=== PATIENT | male | born 1955 | race Caucasian/White ===

== ENCOUNTER 2022-08-17 08:55 | Emergency (ER) | payer OTHER, BC ==
[2022-08-17 09:07] VITALS: TEMP 98.5; BMI 33.9
[2022-08-17] MEDS ORDERED: ACETAMINOPHEN 325 MG TABLET (FP) PO ONE (09:22)
[2022-08-17] MEDS ORDERED: ACETAMINOPHEN 325 MG TABLET (FP) ONE (09:27)
[2022-08-17] MEDS ORDERED: LIDOCAINE HCL 2% (20ML MULTI-DOSE VIAL) ONE (11:11)
[2022-08-17] MEDS ORDERED: PROPOFOL 200 MG/20 ML VIAL IVPUSH ONE ×2 (11:32→11:41)
[2022-08-17 11:48] VITALS: RESP 20
[2022-08-17] MEDS ORDERED: PROPOFOL 20 ML ONE (12:08)
[2022-08-17 12:49] VITALS: PULSE 62
[2022-08-17 12:50] VITALS: BP 149/104
== END 2022-08-17 14:24 | disposition home or self-care (01) ==
LOC: FER 08:55
PROC: 3E033NZ Introduction of Analgesics, Hypnotics, Sedatives into Peripheral Vein, Percutaneous Approach (ICD-10-PCS; principal; 2022-08-17)
DX: S43.004A Unspecified dislocation of right shoulder joint, initial encounter (principal); S02.2XXA Fracture of nasal bones, initial encounter for closed fracture; W01.198A Fall on same level from slipping, tripping and stumbling with subsequent striking against other object, initial encounter
CPT/HCPCS: 70450-TC; 70486-TC; 71046-TC-FY; 73030-TC-RT-FY; 93005; 93010; 99285-25

== ENCOUNTER 2022-09-21 06:09 | Day surgery (SDC) | payer OTHER, BC ==
[2022-09-14 14:15] VITALS: BMI 35.2
[2022-09-21] MEDS ORDERED: EPINEPHrine 1:1,000 1,000 MCG/ML ML ONE ×2 (07:09→10:46)
[2022-09-21] MEDS ORDERED: PROPOFOL 40 ML ONE (07:13)
[2022-09-21] MEDS ORDERED: DEXAMETHASONE SOD PHOSPHATE/PF 10 MG/ML SDV ONE (07:31)
[2022-09-21] MEDS ORDERED: ROPIVACAINE HCL 0.5% 30ML VIAL ONE (07:31)
[2022-09-21] MEDS ORDERED: MIDAZOLAM HCL 2 MG/2 ML SINGLE DOSE VIAL ONE (07:31)
[2022-09-21] MEDS ORDERED: BUPIVACAINE HCL/PF 2.5 MG/ML - 30 ML VIAL IJ ONE (07:45)
[2022-09-21] MEDS ORDERED: ceFAZolin SODIUM 1 GM VIAL ONE ×2 (08:04→08:30)
[2022-09-21] MEDS ORDERED: TRANEXAMIC ACID 1000 MG/10 ML VIAL ONE (08:04)
[2022-09-21] MEDS ORDERED: DEXAMETHASONE SOD PHOSPHATE 4 MG/1 ML VIAL ONE (08:18)
[2022-09-21] MEDS ORDERED: ONDANSETRON 4 MG/2 ML VIAL ONE (08:18)
[2022-09-21] MEDS ORDERED: PROPOFOL 20 ML ONE ×4 (08:21→11:06)
[2022-09-21] MEDS ORDERED: ONDANSETRON 4 MG/2 ML VIAL IVPUSH PRN (10:02)
[2022-09-21] MEDS ORDERED: oxyCODONE HCL 5 MG TABLET PO PRN (10:02)
[2022-09-21 12:34] VITALS: RESP 16; TEMP 97.9
[2022-09-21 13:07] VITALS: BP 147/96; PULSE 80
== END 2022-09-21 13:14 | disposition home or self-care (01) ==
LOC: FASU 06:09
PROVIDERS: ATTEND Orthopaedic Surgery Sports Medicine
PROC: 0LM14ZZ Reattachment of Right Shoulder Tendon, Percutaneous Endoscopic Approach (ICD-10-PCS; principal; 2022-09-21 08:30)
PROC: 0LS34ZZ Reposition Right Upper Arm Tendon, Percutaneous Endoscopic Approach (ICD-10-PCS; 2022-09-21 08:30)
PROC: 0RNJ4ZZ Release Right Shoulder Joint, Percutaneous Endoscopic Approach (ICD-10-PCS; 2022-09-21 08:30)
DX: S46.011A Strain of muscle(s) and tendon(s) of the rotator cuff of right shoulder, initial encounter (principal); S43.491A Other sprain of right shoulder joint, initial encounter; M75.21 Bicipital tendinitis, right shoulder; M75.41 Impingement syndrome of right shoulder; M25.311 Other instability, right shoulder; X58.XXXA Exposure to other specified factors, initial encounter; Y93.9 Activity, unspecified; Y92.9 Unspecified place or not applicable
CPT/HCPCS: 94760; C1713

== ENCOUNTER 2023-01-10 07:28 | Day surgery (SDC) | payer OTHER, BC ==
[2023-01-03 13:40] VITALS: BMI 35.2
[2023-01-10] MEDS ORDERED: PROPOFOL 120 ML ONE (07:42)
[2023-01-10] MEDS ORDERED: LIDOCAINE HCL/PF 2% SDV 5ML VIAL ONE (07:42)
[2023-01-10 07:47] VITALS: RESP 16
[2023-01-10 09:10] VITALS: TEMP 97.8
[2023-01-10 09:26] VITALS: BP 135/83; PULSE 66
== END 2023-01-10 09:35 | disposition home or self-care (01) ==
LOC: FASU-ENDO 07:28
PROVIDERS: ATTEND Internal Medicine Gastroenterology
PROC: 0DJD8ZZ Inspection of Lower Intestinal Tract, Via Natural or Artificial Opening Endoscopic (ICD-10-PCS; principal; 2023-01-10 08:35)
DX: Z12.11 Encounter for screening for malignant neoplasm of colon (principal); Z86.010 Personal history of colon polyps; K57.30 Diverticulosis of large intestine without perforation or abscess without bleeding

== ENCOUNTER 2023-08-06 01:19 | Inpatient (IN) | payer OTHER, BC ==
[2023-08-06 01:41] VITALS: BMI 36.6
[2023-08-06] MEDS: SODIUM CHLORIDE 1,000 ML IV ONE (01:53)
[2023-08-06 02:53] LABS: HEMOGLOBIN 14.7 GM/dL (11.7-16.9); MCH 31.2 pg (25.7-33.7); MCHC 34.9 g/dl (32.0-35.9); MEAN CELL VOLUME 89.4 fl (80-96); MEAN PLT VOLUME 8.6 fl (7.5-11.1); PLATELET COUNT 243 10^3/uL (134-434); RDW 13.5 % (11.9-15.9)
[2023-08-06 03:05] LABS: CHLORIDE 101 mmol/L (98-107); POTASSIUM 3.9 mmol/L (3.5-5.1); SODIUM 135 mmol/L (136-145)
[2023-08-06 03:07] LABS: ANION GAP 14 mmol/L (4-13); BLOOD UREA NITROGEN 28.6 mg/dL (7-18); CALCIUM 8.1 mg/dL (8.5-10.1); CO2 20 mmol/L (21-32)
[2023-08-06 03:08] LABS: ALBUMIN 3.3 g/dl (3.4-5.0); GLUCOSE,RANDOM 183 mg/dL (74-106); MAGNESIUM 2.2 mg/dL (1.8-2.4)
[2023-08-06 03:10] LABS: SGPT/ALT 50 U/L (13-61)
[2023-08-06 03:11] LABS: CREATININE 2.3 mg/dL (0.55-1.3); PHOSPHOROUS 1.2 mg/dL (2.5-4.9); SGOT/AST 191 U/L (15-37)
[2023-08-06 03:12] LABS: BILIRUBIN,TOTAL 2.6 mg/dL (0.2-1); TOT PROT 7.5 g/dl (6.4-8.2)
[2023-08-06 03:13] LABS: ALK PHOS 77 U/L (45-117)
[2023-08-06 03:39] LABS: LACTIC ACID 4.8 mmol/L (0.4-2.0)
[2023-08-06 03:44] LABS: INR 1.54 (0.83-1.09); PROTHROMBIN TIME (PATIENT) 17.8 SEC (9.7-13.0)
[2023-08-06] MEDS: PIPERACILLIN/TAZOB 4.5 GM 4.5 GM in DEXTROSE 5%-WATER 100 ML IVPB ONE (04:59)
[2023-08-06] MEDS ORDERED: PIPERACILLIN/TAZOBACTAM 4.5 GM VIAL IVPB ONE (05:00)
[2023-08-06] MEDS: OSELTAMIVIR PHOSPHATE 30 MG CAPSULE PO ONE (07:28)
[2023-08-06] MEDS: VANCOMYCIN HCL 1,500 MG in DEXTROSE 5%-WATER - 500 ML IVPB ONE (08:39)
[2023-08-06] MEDS: SODIUM CHLORIDE 1,000 ML IV SCH ×2 (08:40→17:44)
[2023-08-06] MEDS: VANCOMYCIN PREMIX 1.5 GM 1,500 MG/300 ML BAG IVPB ONE (08:41)
[2023-08-06 09:08] LABS: CHOLESTEROL 108 mg/dL (50-200)
[2023-08-06 09:10] LABS: LDL CHOLESTEROL (ONLY SJRH) 61 mg/dL (5-100)
[2023-08-06 09:11] LABS: HDL CHOLESTEROL 41 mg/dL (40-60)
[2023-08-06] MEDS: CEFTRIAXONE 1 GM in DEXTROSE 5%-WATER - 50 ML IVPB SCH (17:25)
[2023-08-06] MEDS: POTASSIUM PHOSPHATE 30 MM in DEXTROSE 5%-WATER - 500 ML IVPB ONE (17:45)
[2023-08-06] MEDS: OSELTAMIVIR PHOSPHATE 30 MG CAPSULE PO SCH (22:04)
[2023-08-07 06:48] LABS: POTASSIUM 3.8 mmol/L (3.5-5.1)
[2023-08-07 06:54] LABS: PHOSPHOROUS 5.9 mg/dL (2.5-4.9)
[2023-08-07 06:55] LABS: CREATININE 5.1 mg/dL (0.55-1.3)
[2023-08-07 06:56] LABS: BILIRUBIN,TOTAL 1.4 mg/dL (0.2-1); TOT PROT 5.8 g/dl (6.4-8.2)
[2023-08-07 07:15] LABS: ALBUMIN 2.6 g/dl (3.4-5.0); BLOOD UREA NITROGEN 62.6 mg/dL (7-18)
[2023-08-07] MEDS ORDERED: OSELTAMIVIR PHOSPHATE 30 MG CAPSULE PO SCH (07:45)
[2023-08-07 08:20] LABS: HEMATOCRIT 35.9 % (35.4-49); HEMOGLOBIN 12.6 GM/dL (11.7-16.9); MCH 31.6 pg (25.7-33.7); MEAN CELL VOLUME 90.2 fl (80-96); MEAN PLT VOLUME 8.9 fl (7.5-11.1); PLATELET COUNT 142 10^3/uL (134-434); RBC 3.98 M/mm3 (4.00-5.60); RDW 14.1 % (11.9-15.9); WHITE BLOOD COUNT 9.6 K/mm3 (4.0-10.0)
[2023-08-07 08:34] LABS: MAGNESIUM 2.2 mg/dL (1.8-2.4)
[2023-08-07] MEDS: ATENOLOL 50 MG TABLET (FP) PO SCH (10:00)
[2023-08-07] MEDS: OSELTAMIVIR PHOSPHATE 30 MG CAPSULE PO SCH (10:00)
[2023-08-07 12:52] LABS: EPI CELLS >36 /uL (0-25.1); HYALINE CASTS 3 /uL (0-3.1); URINE APPEARANCE TURBID; URINE BILIRUBIN 1+ (NEGATIVE); URINE COLOR DK YELLOW; URINE GLUCOSE (UA) NEGATIVE (NEGATIVE); URINE KETONE NEGATIVE (NEGATIVE); URINE LEUK ESTERASE 1+ (NEGATIVE); URINE NITRITE POSITIVE (NEGATIVE); URINE PROTEIN 2+ (NEGATIVE); URINE WBC 190 /uL (0-25.8)
[2023-08-07 12:53] LABS: URINE BACTERIA 3.8 /uL (0-1359); URINE RBC 380.3 /uL (0-23.9)
[2023-08-08 06:39] LABS: MCH 30.9 pg (25.7-33.7); MCHC 34.1 g/dl (32.0-35.9); MEAN CELL VOLUME 90.4 fl (80-96); MEAN PLT VOLUME 9.2 fl (7.5-11.1); PLATELET COUNT 145 10^3/uL (134-434); RBC 4.21 M/mm3 (4.00-5.60); RDW 14.1 % (11.9-15.9); WHITE BLOOD COUNT 11.6 K/mm3 (4.0-10.0)
[2023-08-08 07:30] LABS: POTASSIUM 4.2 mmol/L (3.5-5.1)
[2023-08-08 07:40] LABS: CALCIUM 7.6 mg/dL (8.5-10.1)
[2023-08-08 07:41] LABS: ALBUMIN 2.3 g/dl (3.4-5.0); MAGNESIUM 2.7 mg/dL (1.8-2.4)
[2023-08-08 07:44] LABS: CREATININE 6.6 mg/dL (0.55-1.3); PHOSPHOROUS 7.5 mg/dL (2.5-4.9)
[2023-08-08 07:45] LABS: BILIRUBIN,TOTAL 1.1 mg/dL (0.2-1); TOT PROT 5.8 g/dl (6.4-8.2)
[2023-08-08] MEDS: OSELTAMIVIR PHOSPHATE 30 MG CAPSULE PO SCH (09:46)
[2023-08-08] MEDS: SODIUM BICARBONATE 8.4% 50 MEQ/50 ML DISP.SYRIN IVPUSH ONE (12:41)
[2023-08-08] MEDS: SODIUM CHLORIDE 1,000 ML IV SCH (12:41)
[2023-08-08] MEDS: SODIUM BICARBONATE 8.4% - 75 MEQ in SODIUM CHLORIDE 0.45% 1,000 ML IV SCH (13:15)
[2023-08-09 06:49] LABS: CHLORIDE 102 mmol/L (98-107); POTASSIUM 4.3 mmol/L (3.5-5.1); SODIUM 137 mmol/L (136-145)
[2023-08-09 06:51] LABS: MAGNESIUM 2.4 mg/dL (1.8-2.4)
[2023-08-09 06:55] LABS: ALBUMIN 2.2 g/dl (3.4-5.0); ANION GAP 20 mmol/L (4-13); CO2 14 mmol/L (21-32); GLUCOSE,RANDOM 94 mg/dL (74-106)
[2023-08-09 06:58] LABS: SGPT/ALT 181 U/L (13-61)
[2023-08-09 06:59] LABS: SGOT/AST 370 U/L (15-37)
[2023-08-09 07:00] LABS: TOT PROT 5.9 g/dl (6.4-8.2)
[2023-08-09 07:01] LABS: ALK PHOS 69 U/L (45-117)
[2023-08-09 07:38] LABS: BLOOD UREA NITROGEN 112.6 mg/dL (7-18); CALCIUM 6.7 mg/dL (8.5-10.1); CREATININE 7.9 mg/dL (0.55-1.3)
[2023-08-09 08:26] LABS: BASO % 0.4 % (0-2.0); EOS % 0.9 % (0-4.5); HEMATOCRIT 37.8 % (35.4-49); HEMOGLOBIN 13.3 GM/dL (11.7-16.9); LYMPH % 7.5 % (8-40); MCH 31.6 pg (25.7-33.7); MCHC 35.1 g/dl (32.0-35.9); MEAN PLT VOLUME 9.1 fl (7.5-11.1); NEUT % 85.2 % (42.8-82.8); PLATELET COUNT 186 10^3/uL (134-434); RBC 4.21 M/mm3 (4.00-5.60); RDW 14.3 % (11.9-15.9); WHITE BLOOD COUNT 10.7 K/mm3 (4.0-10.0)
[2023-08-09 08:55] LABS: PHOSPHOROUS 8.9 mg/dL (2.5-4.9)
[2023-08-09] MEDS: THIAMINE HCL 200 MG/2 ML VIAL IVPB SCH (13:16)
[2023-08-09] MEDS: SODIUM BICARBONATE 8.4% 50 MEQ/50 ML DISP.SYRIN IVPUSH ONE (15:31)
[2023-08-09] MEDS: FOLIC ACID 1 MG TABLET (FP) PO SCH (15:31)
[2023-08-09] MEDS: COLLAGENASE CLOSTRIDIUM HIST. 30 GRAMS TUBE TP SCH (15:31)
[2023-08-10 06:38] LABS: HEMATOCRIT 38.3 % (35.4-49); MCH 30.8 pg (25.7-33.7); MCHC 33.9 g/dl (32.0-35.9); MEAN PLT VOLUME 8.6 fl (7.5-11.1); PLATELET COUNT 217 10^3/uL (134-434); RBC 4.21 M/mm3 (4.00-5.60); RDW 14.1 % (11.9-15.9); WHITE BLOOD COUNT 11.4 K/mm3 (4.0-10.0)
[2023-08-10 07:00] LABS: CHLORIDE 98 mmol/L (98-107); POTASSIUM 4.1 mmol/L (3.5-5.1); SODIUM 135 mmol/L (136-145)
[2023-08-10 07:01] LABS: ALBUMIN 2.2 g/dl (3.4-5.0); ANION GAP 19 mmol/L (4-13); CO2 18 mmol/L (21-32); GLUCOSE,RANDOM 87 mg/dL (74-106); MAGNESIUM 2.6 mg/dL (1.8-2.4)
[2023-08-10 07:04] LABS: SGOT/AST 274 U/L (15-37); SGPT/ALT 159 U/L (13-61)
[2023-08-10 07:05] LABS: BILIRUBIN,TOTAL 0.8 mg/dL (0.2-1); TOT PROT 5.6 g/dl (6.4-8.2)
[2023-08-10 07:06] LABS: ALK PHOS 69 U/L (45-117)
[2023-08-10 08:01] LABS: PHOSPHOROUS 9.5 mg/dL (2.5-4.9)
[2023-08-10 08:42] LABS: BLOOD UREA NITROGEN 131.3 mg/dL (7-18); CALCIUM 6.6 mg/dL (8.5-10.1); CREATININE 7.9 mg/dL (0.55-1.3)
[2023-08-10] MEDS: CALCIUM GLUC IN NACL, ISO-OSM 1 GM/50 ML BAG IVPB ONE (09:30)
[2023-08-10] MEDS: CALCIUM ACETATE 667 MG CAPSULE (FP) PO SCH (11:30)
[2023-08-10] MEDS ORDERED: SODIUM BICARBONATE 8.4% 50 MEQ/50 ML DISP.SYRIN IVPUSH ONE (18:00)
[2023-08-10] MEDS: SODIUM BICARBONATE 8.4% 50 MEQ/50 ML DISP.SYRIN IVPUSH ONE (18:12)
[2023-08-10] MEDS: SODIUM BICARBONATE 8.4% 50 MEQ/50 ML VIAL IVPUSH ONE (18:12)
[2023-08-10] MEDS: SODIUM CHLORIDE 1,000 ML IV SCH (18:40)
[2023-08-10 20:07] LABS: ANTIGLOMERULAR BASEMENT MEN.AB <0.2 units (0.0-0.9)
[2023-08-11 08:11] LABS: CHLORIDE 100 mmol/L (98-107); POTASSIUM 4.4 mmol/L (3.5-5.1); SODIUM 137 mmol/L (136-145)
[2023-08-11 08:26] LABS: CALCIUM 7.5 mg/dL (8.5-10.1)
[2023-08-11 08:27] LABS: ALBUMIN 2.1 g/dl (3.4-5.0); ANION GAP 19 mmol/L (4-13); CO2 18 mmol/L (21-32); GLUCOSE,RANDOM 77 mg/dL (74-106)
[2023-08-11 08:29] LABS: SGPT/ALT 128 U/L (13-61)
[2023-08-11 08:30] LABS: SGOT/AST 161 U/L (15-37)
[2023-08-11 08:31] LABS: BILIRUBIN,TOTAL 0.5 mg/dL (0.2-1); TOT PROT 5.3 g/dl (6.4-8.2)
[2023-08-11 08:32] LABS: ALK PHOS 60 U/L (45-117)
[2023-08-11 08:38] LABS: MAGNESIUM 2.7 mg/dL (1.8-2.4)
[2023-08-11 09:01] LABS: PHOSPHOROUS 9.4 mg/dL (2.5-4.9)
[2023-08-11 09:17] LABS: BLOOD UREA NITROGEN 131.4 mg/dL (7-18); CREATININE 7.6 mg/dL (0.55-1.3); HEMOGLOBIN 11.9 GM/dL (11.7-16.9); MEAN CELL VOLUME 91.3 fl (80-96); MEAN PLT VOLUME 8.4 fl (7.5-11.1); PLATELET COUNT 255 10^3/uL (134-434); RBC 3.83 M/mm3 (4.00-5.60); RDW 14.1 % (11.9-15.9); WHITE BLOOD COUNT 9.8 K/mm3 (4.0-10.0)
[2023-08-12 08:43] LABS: HEMOGLOBIN 11.6 GM/dL (11.7-16.9); MCH 31.1 pg (25.7-33.7); MCHC 34.2 g/dl (32.0-35.9); MEAN PLT VOLUME 7.9 fl (7.5-11.1); PLATELET COUNT 295 10^3/uL (134-434); RBC 3.74 M/mm3 (4.00-5.60); WHITE BLOOD COUNT 7.8 K/mm3 (4.0-10.0)
[2023-08-12 09:05] LABS: CHLORIDE 104 mmol/L (98-107); POTASSIUM 4.5 mmol/L (3.5-5.1); SODIUM 138 mmol/L (136-145)
[2023-08-12 09:08] LABS: GLUCOSE,RANDOM 96 mg/dL (74-106)
[2023-08-12 09:09] LABS: ALBUMIN 2.2 g/dl (3.4-5.0); ANION GAP 16 mmol/L (4-13); CO2 18 mmol/L (21-32); MAGNESIUM 2.6 mg/dL (1.8-2.4)
[2023-08-12 09:12] LABS: SGOT/AST 116 U/L (15-37); SGPT/ALT 113 U/L (13-61)
[2023-08-12 09:13] LABS: BILIRUBIN,TOTAL 0.7 mg/dL (0.2-1); TOT PROT 5.6 g/dl (6.4-8.2)
[2023-08-12 09:14] LABS: ALK PHOS 65 U/L (45-117)
[2023-08-12 09:36] LABS: BLOOD UREA NITROGEN 133.1 mg/dL (7-18); CALCIUM 6.9 mg/dL (8.5-10.1); CREATININE 7.7 mg/dL (0.55-1.3); PHOSPHOROUS > 9.0 mg/dL (2.5-4.9)
[2023-08-13] MEDS: ONDANSETRON 4 MG/2 ML VIAL IVPUSH ONE (02:35)
[2023-08-13 09:19] LABS: HEMATOCRIT 35.3 % (35.4-49); HEMOGLOBIN 12.5 GM/dL (11.7-16.9); MCH 31.8 pg (25.7-33.7); MCHC 35.5 g/dl (32.0-35.9); MEAN CELL VOLUME 89.5 fl (80-96); MEAN PLT VOLUME 7.4 fl (7.5-11.1); PLATELET COUNT 353 10^3/uL (134-434); RBC 3.95 M/mm3 (4.00-5.60); RDW 14.4 % (11.9-15.9); WHITE BLOOD COUNT 7.7 K/mm3 (4.0-10.0)
[2023-08-13 09:21] LABS: CHLORIDE 109 mmol/L (98-107); POTASSIUM 4.5 mmol/L (3.5-5.1); SODIUM 140 mmol/L (136-145)
[2023-08-13 09:26] LABS: ANION GAP 16 mmol/L (4-13); CALCIUM 7.3 mg/dL (8.5-10.1); CO2 14 mmol/L (21-32); MAGNESIUM 2.2 mg/dL (1.8-2.4)
[2023-08-13 09:27] LABS: GLUCOSE,RANDOM 98 mg/dL (74-106)
[2023-08-13 09:30] LABS: CREATININE 6.8 mg/dL (0.55-1.3)
[2023-08-13 09:33] LABS: BLOOD UREA NITROGEN 116.3 mg/dL (7-18); PHOSPHOROUS 7.9 mg/dL (2.5-4.9)
[2023-08-13] MEDS ORDERED: SODIUM CHLORIDE 0.45% 1,000 ML with SODIUM BICARBONATE 8.4% - 75 MEQ IV SCH (14:00)
[2023-08-13] MEDS: SODIUM BICARBONATE 8.4% - 75 MEQ in SODIUM CHLORIDE 0.45% 1,000 ML IV SCH (15:14)
[2023-08-13] MEDS: SODIUM BICARBONATE 8.4% 50 MEQ/50 ML DISP.SYRIN IVPUSH ONE (15:15)
[2023-08-13 16:08] LABS: ATYPICAL pANCA <1:20 titer (Neg:<1:20); C-ANCA <1:20 titer (Neg:<1:20)
[2023-08-14 06:50] LABS: HEMATOCRIT 32.6 % (35.4-49); HEMOGLOBIN 11.3 GM/dL (11.7-16.9); MCH 31.4 pg (25.7-33.7); MCHC 34.7 g/dl (32.0-35.9); MEAN CELL VOLUME 90.3 fl (80-96); MEAN PLT VOLUME 7.4 fl (7.5-11.1); PLATELET COUNT 333 10^3/uL (134-434); RBC 3.61 M/mm3 (4.00-5.60); WHITE BLOOD COUNT 7.5 K/mm3 (4.0-10.0)
[2023-08-14 07:10] LABS: CHLORIDE 112 mmol/L (98-107); POTASSIUM 4.3 mmol/L (3.5-5.1); SODIUM 143 mmol/L (136-145)
[2023-08-14 07:18] LABS: ALBUMIN 2.4 g/dl (3.4-5.0); GLUCOSE,RANDOM 91 mg/dL (74-106); SGPT/ALT 87 U/L (13-61)
[2023-08-14 07:20] LABS: ANION GAP 12 mmol/L (4-13); BILIRUBIN,TOTAL 0.5 mg/dL (0.2-1); CALCIUM 7.7 mg/dL (8.5-10.1); CO2 20 mmol/L (21-32); TOT PROT 5.8 g/dl (6.4-8.2)
[2023-08-14 07:21] LABS: ALK PHOS 57 U/L (45-117); PHOSPHOROUS 6.7 mg/dL (2.5-4.9); SGOT/AST 92 U/L (15-37)
[2023-08-14 08:35] LABS: BLOOD UREA NITROGEN 105.3 mg/dL (7-18)
[2023-08-14] MEDS: DOCUSATE SODIUM 100 MG CAPSULE (FP) PO SCH (22:46)
[2023-08-15 06:39] LABS: HEMATOCRIT 33.6 % (35.4-49); HEMOGLOBIN 11.4 GM/dL (11.7-16.9); MCH 30.8 pg (25.7-33.7); MCHC 34.1 g/dl (32.0-35.9); MEAN CELL VOLUME 90.3 fl (80-96); MEAN PLT VOLUME 7.2 fl (7.5-11.1); PLATELET COUNT 356 10^3/uL (134-434); RBC 3.71 M/mm3 (4.00-5.60); RDW 14.2 % (11.9-15.9); WHITE BLOOD COUNT 8.3 K/mm3 (4.0-10.0)
[2023-08-15 07:02] LABS: POTASSIUM 4.1 mmol/L (3.5-5.1)
[2023-08-15 07:05] LABS: ALBUMIN 2.6 g/dl (3.4-5.0); BLOOD UREA NITROGEN 83.3 mg/dL (7-18); CALCIUM 7.5 mg/dL (8.5-10.1)
[2023-08-15 07:08] LABS: CREATININE 4.8 mg/dL (0.55-1.3); PHOSPHOROUS 5.2 mg/dL (2.5-4.9)
[2023-08-15 07:10] LABS: BILIRUBIN,TOTAL 0.6 mg/dL (0.2-1)
[2023-08-15 07:12] LABS: MAGNESIUM 1.9 mg/dL (1.8-2.4)
[2023-08-15 11:57] LABS: EPI CELLS 2 /uL (0-25.1); HYALINE CASTS 0 /uL (0-3.1); URINE APPEARANCE CLEAR; URINE BACTERIA 5 /uL (0-1359); URINE BILIRUBIN NEGATIVE (NEGATIVE); URINE COLOR YELLOW; URINE GLUCOSE (UA) NEGATIVE (NEGATIVE); URINE KETONE NEGATIVE (NEGATIVE); URINE LEUK ESTERASE NEGATIVE (NEGATIVE); URINE NITRITE NEGATIVE (NEGATIVE); URINE PROTEIN NEGATIVE (NEGATIVE); URINE RBC 20 /uL (0-23.9); URINE UROBILINOGEN 0.2 mg/dL (0.2-1.0); URINE WBC 7 /uL (0-25.8)
[2023-08-15] MEDS: SODIUM CHLORIDE 0.45% 1,000 ML IV SCH (14:39)
[2023-08-16 07:00] LABS: HEMATOCRIT 33.7 % (35.4-49); HEMOGLOBIN 11.5 GM/dL (11.7-16.9); MEAN CELL VOLUME 91.1 fl (80-96); MEAN PLT VOLUME 6.8 fl (7.5-11.1); PLATELET COUNT 343 10^3/uL (134-434); WHITE BLOOD COUNT 9.1 K/mm3 (4.0-10.0)
[2023-08-16 07:53] LABS: ALBUMIN 2.5 g/dl (3.4-5.0); BILIRUBIN,TOTAL 0.5 mg/dL (0.2-1); BLOOD UREA NITROGEN 61.4 mg/dL (7-18); CALCIUM 7.9 mg/dL (8.5-10.1); CREATININE 3.7 mg/dL (0.55-1.3); MAGNESIUM 1.8 mg/dL (1.8-2.4); TOT PROT 6.2 g/dl (6.4-8.2)
[2023-08-16] MEDS: SODIUM CHLORIDE 0.45% 1,000 ML IV SCH (17:20)
[2023-08-17 08:29] LABS: HEMATOCRIT 30.3 % (35.4-49); HEMOGLOBIN 10.8 GM/dL (11.7-16.9); MCH 32.3 pg (25.7-33.7); MCHC 35.7 g/dl (32.0-35.9); MEAN CELL VOLUME 90.6 fl (80-96); MEAN PLT VOLUME 7.2 fl (7.5-11.1); PLATELET COUNT 309 10^3/uL (134-434); RBC 3.34 M/mm3 (4.00-5.60); RDW 14.1 % (11.9-15.9); WHITE BLOOD COUNT 9.4 K/mm3 (4.0-10.0)
[2023-08-17 08:53] LABS: POTASSIUM 3.8 mmol/L (3.5-5.1)
[2023-08-17 09:01] LABS: ALBUMIN 2.7 g/dl (3.4-5.0); BLOOD UREA NITROGEN 40.9 mg/dL (7-18); MAGNESIUM 1.8 mg/dL (1.8-2.4)
[2023-08-17 09:02] LABS: CALCIUM 8.1 mg/dL (8.5-10.1)
[2023-08-17 09:04] LABS: CREATININE 2.8 mg/dL (0.55-1.3); PHOSPHOROUS 3.5 mg/dL (2.5-4.9)
[2023-08-17 09:06] LABS: BILIRUBIN,TOTAL 0.6 mg/dL (0.2-1); TOT PROT 6.3 g/dl (6.4-8.2)
[2023-08-18 09:03] LABS: HEMATOCRIT 34.7 % (35.4-49); HEMOGLOBIN 11.7 GM/dL (11.7-16.9); MCH 30.6 pg (25.7-33.7); MCHC 33.7 g/dl (32.0-35.9); MEAN CELL VOLUME 90.8 fl (80-96); MEAN PLT VOLUME 7.2 fl (7.5-11.1); PLATELET COUNT 332 10^3/uL (134-434); RBC 3.82 M/mm3 (4.00-5.60); RDW 14.2 % (11.9-15.9); WHITE BLOOD COUNT 10.4 K/mm3 (4.0-10.0)
[2023-08-18 09:20] LABS: POTASSIUM 3.9 mmol/L (3.5-5.1)
[2023-08-18 09:29] LABS: CALCIUM 8.7 mg/dL (8.5-10.1)
[2023-08-18 09:30] LABS: ALBUMIN 2.8 g/dl (3.4-5.0); BLOOD UREA NITROGEN 31.2 mg/dL (7-18); MAGNESIUM 1.8 mg/dL (1.8-2.4)
[2023-08-18 09:33] LABS: BILIRUBIN,TOTAL 0.6 mg/dL (0.2-1); CREATININE 2.2 mg/dL (0.55-1.3); PHOSPHOROUS 3.2 mg/dL (2.5-4.9)
[2023-08-18 09:34] LABS: TOT PROT 6.6 g/dl (6.4-8.2)
[2023-08-18] MEDS ORDERED: SODIUM CHLORIDE 0.45% 1,000 ML IV SCH (11:04)
[2023-08-18] MEDS: hydrALAZINE HCL 25 MG TABLET (FP) PO SCH (14:52)
[2023-08-18 16:20] VITALS: BP 144/74; PULSE 57; RESP 20; TEMP 98
== END 2023-08-18 16:30 | disposition home or self-care (01) | DRG 872 ==
LOC: FER 01:19 → J4W 04:16
PROVIDERS: ADMIT Internal Medicine; ATTEND Internal Medicine
DX: A41.9 Sepsis, unspecified organism (principal); N17.9 Acute kidney failure, unspecified; M62.82 Rhabdomyolysis; E87.20 Acidosis, unspecified; G93.49 Other encephalopathy; L05.01 Pilonidal cyst with abscess; R55 Syncope and collapse; I48.91 Unspecified atrial fibrillation; S30.0XXA Contusion of lower back and pelvis, initial encounter; I10 Essential (primary) hypertension; E78.5 Hyperlipidemia, unspecified; E66.9 Obesity, unspecified; Z68.36 Body mass index [BMI] 36.0-36.9, adult; L89.150 Pressure ulcer of sacral region, unstageable; J10.1 Influenza due to other identified influenza virus with other respiratory manifestations; W19.XXXA Unspecified fall, initial encounter; Y93.89 Activity, other specified; Y92.89 Other specified places as the place of occurrence of the external cause; Y99.8 Other external cause status; N40.0 Benign prostatic hyperplasia without lower urinary tract symptoms; E83.39 Other disorders of phosphorus metabolism; F10.20 Alcohol dependence, uncomplicated; F41.9 Anxiety disorder, unspecified; K76.0 Fatty (change of) liver, not elsewhere classified; R16.2 Hepatomegaly with splenomegaly, not elsewhere classified
CPT/HCPCS: 0241U-QW; 36415; 70450-TC; 70486-TC; 71045-TC-FY; 72192-TC; 76700-TC; 76856-TC; 80048; 80053; 80061; 81003; 82140; 82436; 82550; 82553; 82570; 83036; 83516; 83520; 83605; 83735; 83970; 84100; 84133; 84300; 84439; 84443; 84484; 85025; 85027; 85610; 86038; 86160; 86225; 86256; 87040; 87070; 87076; 87086; 87205; 93005; 93306-TC; 97116-GP; 97162-GP; 99285-25

== ENCOUNTER 2024-02-06 13:55 | Inpatient (IN) | payer OTHER, BC ==
[2024-02-06 14:37] VITALS: BMI 38.6
[2024-02-06] MEDS ORDERED: IBUPROFEN 400 MG TABLET (FP) PO PRN (14:44)
[2024-02-06] MEDS ORDERED: NALOXONE HCL 0.4 MG/ML VIAL IM PRN (14:44)
[2024-02-06] MEDS ORDERED: DICYCLOMINE HCL 10 MG CAPSULE PO PRN (14:44)
[2024-02-06] MEDS ORDERED: MAG HYDROX/AL HYDROX/SIMETH 30 ML UNIT-DOSE CUP PO PRN (14:44)
[2024-02-06] MEDS ORDERED: ACETAMINOPHEN 325 MG TABLET (FP) PO PRN (14:44)
[2024-02-06] MEDS ORDERED: guaiFENesin 600 MG TABLET.ER (FP) PO PRN (14:44)
[2024-02-06] MEDS ORDERED: BISMUTH SUBSALICYLATE 524 MG/30 ML PO PRN (14:44)
[2024-02-06] MEDS ORDERED: LOPERAMIDE HCL 2 MG CAPSULE PO PRN (14:44)
[2024-02-06] MEDS ORDERED: BENZOCAINE/MENTHOL (CHLORASEPTIC ) LOZENGE MM PRN (14:44)
[2024-02-06] MEDS ORDERED: POLYETHYLENE GLYCOL (HEALTHYLAX) 3350 17 GM PACKET PO PRN (14:44)
[2024-02-06] MEDS ORDERED: MAGNESIUM HYDROX 2400MG/30ML ORAL SUSPENSION 30 ML CUP PO PRN (14:44)
[2024-02-06] MEDS ORDERED: NALOXONE (NARCAN) HCL 4 MG/0.1 ML SPRAY NS PRN (14:44)
[2024-02-06] MEDS ORDERED: ONDANSETRON *ODT* 4 MG TABLET SL PRN (14:44)
[2024-02-06] MEDS ORDERED: BENZONATATE 200 MG CAPSULE PO PRN (14:44)
[2024-02-06] MEDS ORDERED: LORazepam 2 MG TABLET ONE (15:01)
[2024-02-06] MEDS: LORazepam 2 MG TABLET PO ONE ×2 (15:02→16:00)
[2024-02-06] MEDS: hydrOXYzine PAMOATE 25 MG CAPSULE (FP) PO PRN (15:59)
[2024-02-06] MEDS ORDERED: hydrOXYzine PAMOATE 25 MG CAPSULE (FP) PO ONE (15:59)
[2024-02-06] MEDS: PRENATAL VITAMINS W/ FOLIC ACID TABLET (FP) PO SCH (16:00)
[2024-02-06] MEDS: LORazepam 2 MG TABLET PO SCH (16:53)
[2024-02-06] MEDS: METHOCARBAMOL 500 MG TABLET PO PRN (18:20)
[2024-02-06] MEDS: THIAMINE 100 MG TABLET PO SCH (22:20)
[2024-02-06] MEDS: DOCUSATE SODIUM 100 MG CAPSULE (FP) PO SCH (22:20)
[2024-02-06] MEDS: MELATONIN 5 MG TABLETS PO SCH (22:20)
[2024-02-07] MEDS: CHOLECALCIFEROL (VIT D3) 1,000 UNIT (25 MCG) TABLET PO SCH (09:59)
[2024-02-07] MEDS ORDERED: ATENOLOL 50 MG TABLET (FP) PO SCH (10:00)
[2024-02-07] MEDS ORDERED: PATIENT'S OWN MEDICATION (NON-FORMULARY) (Cholecalciferol (Vitamin D3) [Vitamin D3] 50 MCG PO SCH (10:00)
[2024-02-07] MEDS: ATENOLOL 50 MG TABLET (FP) PO SCH (10:00)
[2024-02-07] MEDS: LORazepam 1 MG TABLET PO PRN (13:14)
[2024-02-07 14:22] LABS: POTASSIUM 4.5 mmol/L (3.5-5.1)
[2024-02-07 14:25] LABS: EOS % 3.1 % (0-4.5); HEMATOCRIT 40.3 % (35.4-49); HEMOGLOBIN 13.8 GM/dL (11.7-16.9); LYMPH % 14.2 % (8-40); MCH 31.6 pg (25.7-33.7); MCHC 34.2 g/dl (32.0-35.9); MEAN CELL VOLUME 92.6 fl (80-96); MONO % 10.1 % (3.8-10.2); NEUT % 71.6 % (42.8-82.8); PLATELET COUNT 111 10^3/uL (134-434); RBC 4.35 M/mm3 (4.00-5.60); RDW 16.1 % (11.9-15.9); WHITE BLOOD COUNT 4.1 K/mm3 (4.0-10.0)
[2024-02-07 14:26] LABS: BLOOD UREA NITROGEN 18.7 mg/dL (7-18); CALCIUM 9.2 mg/dL (8.5-10.1)
[2024-02-07 14:30] LABS: CREATININE 1.1 mg/dL (0.55-1.3)
[2024-02-07 14:31] LABS: TOT PROT 7.4 g/dl (6.4-8.2)
[2024-02-07] MEDS ORDERED: DOCUSATE SODIUM 100 MG CAPSULE (FP) PO SCH (22:00)
[2024-02-07 22:54] LABS: EPI CELLS 10 /uL (0-25.1); HYALINE CASTS 8 /uL (0-3.1); PH,URINE 5.5 (5.0-8.0); URINE APPEARANCE CLEAR; URINE BACTERIA 68 /uL (0-1359); URINE BILIRUBIN NEGATIVE (NEGATIVE); URINE COLOR DK YELLOW; URINE GLUCOSE (UA) NEGATIVE (NEGATIVE); URINE KETONE TRACE (NEGATIVE); URINE LEUK ESTERASE NEGATIVE (NEGATIVE); URINE NITRITE NEGATIVE (NEGATIVE); URINE PROTEIN 1+ (NEGATIVE); URINE RBC 13 /uL (0-23.9); URINE UROBILINOGEN 0.2 mg/dL (0.2-1.0); URINE WBC 41 /uL (0-25.8)
[2024-02-08] MEDS: LORazepam 1 MG TABLET PO SCH (05:32)
[2024-02-08] MEDS: LACTULOSE 20 GM/30 ML UDC (FOR ORAL USE ONLY) PO SCH (13:59)
[2024-02-08] MEDS: IBUPROFEN 600 MG TABLET (FP) PO PRN (23:52)
[2024-02-09] MEDS ORDERED: LORazepam 0.5 MG TABLET PO PRN
[2024-02-09] MEDS: LORazepam 0.5 MG TABLET PO SCH (05:40)
[2024-02-09] MEDS: amLODIPine BESYLATE 10 MG TABLET (FP) PO SCH (15:34)
[2024-02-09] MEDS ORDERED: amLODIPine BESYLATE 5 MG TABLET (FP) PO SCH (15:37)
[2024-02-09] MEDS: LORATADINE 10 MG TABLET PO SCH (17:09)
[2024-02-10] MEDS: LORazepam 0.5 MG TABLET PO ONE (05:29)
[2024-02-10 06:19] VITALS: RESP 16
[2024-02-10 08:52] VITALS: BP 158/98; PULSE 86; TEMP 97.9
[2024-02-10] MEDS: amLODIPine BESYLATE 5 MG TABLET (FP) PO SCH (09:10)
== END 2024-02-10 09:14 | disposition home or self-care (01) | DRG 897 ==
LOC: YASAS 13:55 → Y3N 15:58
PROVIDERS: ADMIT Allergy & Immunology; ATTEND Surgery
PROC: HZ2ZZZZ Detoxification Services for Substance Abuse Treatment (ICD-10-PCS; principal; 2024-02-06)
DX: F10.230 Alcohol dependence with withdrawal, uncomplicated (principal); E72.20 Disorder of urea cycle metabolism, unspecified; F41.9 Anxiety disorder, unspecified; I10 Essential (primary) hypertension; N40.0 Benign prostatic hyperplasia without lower urinary tract symptoms; Z87.891 Personal history of nicotine dependence
CPT/HCPCS: 36415; 80053; 80305; 80307; 81003; 82140; 85025; 86780; 93005; 93010

== ENCOUNTER 2024-06-09 11:05 | Emergency (ER) | payer OTHER, BC ==
[2024-06-09 11:13] VITALS: BP 140/95; PULSE 69; RESP 18; TEMP 98.2; BMI 36.3
== END 2024-06-09 14:28 | disposition home or self-care (01) ==
LOC: FER 11:05
DX: S90.32XA Contusion of left foot, initial encounter (principal); W20.8XXA Other cause of strike by thrown, projected or falling object, initial encounter
CPT/HCPCS: 73630-TC-RT-FY; 99283-25